=== PATIENT | male | born 1995 | race Caucasian/White ===

== ENCOUNTER 2019-12-29 13:27 | Emergency (ER) | payer OTHER, SELFPAY ==
--- NOTE | ~2019-12-29 | XR_ITS ---
. EXAMINATION: XR knee RT 3V DATE: 12/29/2019 13:56 INDICATION: Medial right knee pain and inability to straighten the knee post fall TECHNIQUE: Anteroposterior, oblique and crosstable lateral views of the right knee were obtained COMPARISON: None. FINDINGS: Alignment is normal. No fracture. No joint effusion/layering lipohemarthrosis. Borderline joint spac e narrowing in the medial compartment. Soft tissues are unremarkable. IMPRESSION: 1. Borderline joint space narrowing in the medial compartment. No right knee joint effusion or osseou s abnormality. Reviewed, dictated and finalized at location A. IMPRESSION: 1. Borderline joint space narrowing in the medial compartment. No right knee bridger int effusion or osseous abnormality.
--- NOTE | 2019-12-29 13:30 | ED.GENADULT ---
HPI - General Adult General Stated complaint: right knee pain Time Seen by Provider: 12/29/19 13:29 Related Data Allergies Allergy/AdvReac Type Severity Reaction Status Date / Time No Known Allergies Allergy Unverified 03/27/11 12:13
[2019-12-29 13:35] VITALS: BP 161/99; PULSE 88; RESP 16; TEMP 36.9; O2SAT 97
--- NOTE | 2019-12-29 13:39 | ED.ABDPAIN ---
HPI - Abdominal Pain General Chief Complaint: Extremity Injury, Lower <DOT Dewitt Last Filed: 12/29/19 14:14> Stated Complaint: right knee pain <DOT Dewitt Last Filed: 12/29/19 14:14> Time Seen by Provider: 12/29/19 13:29 <DOT Dewitt Last Filed: 12/29/19 14:14> Source: patient <DOT Dewitt Last Filed: 12/29/19 14:14> Mode of arrival: ambulatory <DOT Dewitt Last Filed: 12/29/19 14:14> Limitations: no limitations <DOT Dewitt Last Filed: 12/29/19 14:14> History of Present Illness HPI narrative: Patient is a 24-year-old male who presents with several days duration of right medial knee pain with aching pain worse with weightbearing and activity patient was wrestling with his brother at the time of the injury. Patient is taken pain pills with some improvement patient on arrival per private vehicle in no distress resting comfortably. Patient denies similar occurrence in the past. Patient is not been seen for this complaint. Patient denies radicular symptoms or paresthesias numbness or tingling. Patient notes slight swelling of the joint <DOT Dewitt Last Filed: 12/29/19 14:14> Related Data Allergies/Adverse Reactions: Allergies Allergy/AdvReac Type Severity Reaction Status Date / Time No Known Allergies Allergy Verified 12/29/19 13:45 <DOT Dewitt Last Filed: 12/29/19 14:14> Review of Systems Review of Systems: Narrative: CONSTITUTIONAL: Denies fever, chills, or sweats. EYES: Denies redness, or discharge. ENT: Denies rhinorrhea, congestion, sore throat, or otalgia. RESPIRATORY: Denies cough or dyspnea. SKIN: Denies rash or itching. MUSCULOSKELETAL: Positive for right knee pain and joint swelling NEUROLOGIC: Denies headache, numbness, or weakness. <DOT Dewitt Last Filed: 12/29/19 14:14> [facility] Social History Social History: Social History (Updated 12/29/19 @ 13:43 by Yury Gupta PA-C) Smoking status: Never smoker <Yury Gupta PA-C - Last Filed: 12/29/19 14:14> Exam Narrative: Exam Narrative: GENERAL: Well-appearing, well-nourished, and in no acute distress. HEAD: Normocephalic, atraumatic. EYES: PERRLA and EOMI. ENT: Nares clear, no rhinorrhea or epistaxis. Mucous membranes moist. EXTREMITIES: Tenderness of the medial aspect of the right knee no deformity noted SKIN: Warm, dry, no rash. NEURO: No focal deficits. Alert and oriented x3. Neurovascularly intact. Capillary refill less than 2-second PSYCH: Normal mood and affect. <Yury Gupta PA-C - Last Filed: 12/29/19 14:14> Course Course Emergency Course: Patient aware of case findings treatment plan and diagnosis agreeing to follow-up as directed <Yury Gupta PA-C - Last Filed: 12/29/19 14:14> Vital Signs Vital signs: Vital Signs Temperature 36.9 C 12/29/19 13:35 Pulse Rate 88 12/29/19 13:35 Respiratory Rate 16 12/29/19 13:35 Blood Pressure 161/99 H 12/29/19 13:35 Pulse Oximetry 97 12/29/19 13:35 Temperature 36.9 C 12/29/19 13:35 Pulse Rate 59 L 12/29/19 14:31 Respiratory Rate 16 12/29/19 14:31 Blood Pressure 138/75 12/29/19 14:31 Pulse Oximetry 97 12/29/19 14:31 <Yury Gupta PA-C - Last Filed: 12/29/19 14:14> Vital Signs Temperature 36.9 C 12/29/19 13:35 Pulse Rate 88 12/29/19 13:35 Respiratory Rate 16 12/29/19 13:35 Blood Pressure 161/99 H 12/29/19 13:35 Pulse Oximetry 97 12/29/19 13:35 Temperature 36.9 C 12/29/19 13:35 Pulse Rate 59 L 12/29/19 14:31 Respiratory Rate 16 12/29/19 14:31 Blood Pressure 138/75 12/29/19 14:31 Pulse Oximetry 97 12/29/19 14:31 <Petra Stacy MD - Last Filed: 12/29/19 18:11> MDM - Abdominal Pain MDM Narrative Medical decision making narrative: Patients injury or pain is consistent with musculoskeletal etiology. No s
[2019-12-29] MEDS: KETOROLAC (*BKC) 60 MG/2 ML VIAL IM (13:53)
[2019-12-29 14:31] VITALS: BP 138/75; PULSE 59; RESP 16; O2SAT 97
== END 2019-12-29 14:32 | disposition home or self-care (01) ==
PROVIDERS: Emergency Provider Emergency Medicine
DX: M25.561 Pain in right knee (principal)
CPT/HCPCS: 73562; 96372; 99283; J1885

== ENCOUNTER 2020-01-21 18:29 | Outpatient (CLI) | payer OTHER, SELFPAY ==
--- NOTE | ~2020-01-21 | MR_ITS ---
EXAMINATION: MR knee RT wo con DATE: 01/21/2020 19:09 INDICATION: Right knee pain. TECHNIQUE: Magnetic resonance imaging (MRI) of the right knee was performed without intravenous contr ast. Sequences included axial PD-weighted FS FSE, coronal PD-weighted FSE and PD-weighted FS FSE, sag ittal PD-weighted FSE, and sagittal T2-weighted FS FSE. COMPARISON: Right knee radiographs 01/06/2020 FINDINGS: Medial compartment: Medial meniscus is normal. Medial compartment cartilage is normal. Lateral compartment: Lateral meniscus is normal. Lateral compartment cartilage is normal. Patellofemoral compartment: Patellar cartilage is normal. Trochlear cartilage is normal. Ligaments and tendons: The anterior and posterior cruciate ligaments are normal. There is a partial tear of medial collatera l ligament with surrounding edema. Lateral collateral ligament complex is normal. The extensor mechan ism is normal. Fluid: There is a small knee joint effusion. Osseous/other: There is bone marrow edema of the posterior aspects of lateral tibial condyle and lateral femoral con dyle, consistent with contusions. IMPRESSION: 1. Grade 2 sprain of medial collateral ligament. 2. Small knee joint effusion. Reviewed, dictated and finalized at location A.
== END 2020-01-21 18:30 | disposition home or self-care (01) ==
PROVIDERS: PCP Physician Assistant; Visit Provider Orthopaedic Surgery
DX: M25.461 Effusion, right knee (principal); S83.411A Sprain of medial collateral ligament of right knee, initial encounter; X58.XXXA Exposure to other specified factors, initial encounter
CPT/HCPCS: 73721

== ENCOUNTER 2021-01-23 17:31 | Emergency (ER) | payer OTHER, SELFPAY ==
[2021-01-23 17:40] VITALS: BP 145/84; PULSE 82; RESP 16; TEMP 37.1; O2SAT 98
[2021-01-23 17:56] VITALS: BP 145/84; PULSE 82; RESP 16; TEMP 37.1; O2SAT 98
--- NOTE | 2021-01-23 17:58 | ED.GENADULT ---
HPI - General Adult General Chief complaint: Wound/Laceration Stated complaint: Possible infection at injection site Time Seen by Provider: 01/23/21 17:59 Source: patient and RN notes reviewed Mode of arrival: ambulatory Limitations: no limitations History of Present Illness HPI narrative: 25-year-old male presents with injection site swelling and pain to the right hip for 1 day. ?Jay reports injecting Testosterone into right buttock on Saturday01/21/2021 as he has done for the past 10 weeks and noticed a lump and pain on Saturday01/22/2021. ?Jay believes injection caused swelling and pain, concerned for infection. ?No treatment. ?Denies erythema or drainage. ?No streaking. ?Denies fever. ?Denies nausea, vomiting, and abdominal pain. ?Tolerating po intake well. ?Remains active. ?The patient reports he has not been diagnosed with COVID-19. ?The patient reports he is not waiting for the results of a COVID-19 lab test. ?The patient reports he does not have chills, weakness, or fatigue. ?The patient reports he does not have a new or worsening cough or shortness of breath. ?Denies chest pain. ?The patient reports he does not have any rhinorrhea, congestion, loss of taste or smell, sore throat, and diarrhea. ?Denies recent traveling. ?Denies concerns for COVID-19 or exposures. ?At this time, the patient is not suspected of having COVID-19. Some parts of this dictation were generated by voice recognition software and may contain typographical and/or grammatical inaccuracies. Related Data Home Medications Medication Instructions Recorded Confirmed No Home Medications 01/23/21 01/23/21 Allergies Allergy/AdvReac Type Severity Reaction Status Date / Time No Known Allergies Allergy Verified 01/23/21 17:38 Review of Systems Review of Systems: Narrative: CONSTITUTIONAL: Denies fever, chills, sweats. EYES: Denies visual changes, redness, discharge. ENT: Denies rhinorrhea, congestion, sore throat, otalgia. CARDIOVASCULAR: Denies chest pain, palpitations, edema. RESPIRATORY: Denies dyspnea, wheezing, cough. GASTROINTESTINAL: Denies abdominal pain, nausea, vomiting, diarrhea. SKIN: Complaints of injection site swelling and pain to right buttock. Denies erythema or drainage. MUSCULOSKELETAL: Denies acute back pain, joint pain, or myalgia. NEUROLOGIC: Denies numbness or focal weakness. PSYCHIATRIC: Denies anxiety or depression. All other systems reviewed are negative, except as documented in HPI and below. [facility] Past Medical History Medical History Acute medial meniscus tear of right knee BMI 35.0-35.9,adult Encounter to establish care Medial collateral ligament sprain of knee Right knee injury (12/26/19) Right knee pain Family History Family History Mother Eric's disease Father COPD (chronic obstructive pulmonary disease) Tclxt-Owvxucozs-Btiia (WPW) syndrome Hypertension Grandparent Heart disease Social History Social History Smoking status: Current some day smoker Tobacco type: smokeless tobacco Smokeless tobacco user: chewing tobacco Alcohol intake: current Drinks per week: 3 Substance use: never Spiritual care concerns: No Comments At time of signature, agree with the nurse past medical, surgical, social, and family history. There is no relevant family history pertinent to the presenting complaint. Exam Narrative: Exam Narrative: GENERAL: This is a well-nourished, well-developed patient, in no apparent distress. Talks in full sentences and ambulates with steady gait without dyspnea. HEAD: normocephalic, atraumatic. EYES: PERRL. Sclera clear/white. Vision is grossly intact. CARDIOVASCULAR: Regular rate and rhythm without murmurs, gallops, or rubs. RESPIRATORY: Clear to auscultation. Breath sounds equal bilaterally. No wh
== END 2021-01-23 18:20 | disposition home or self-care (01) ==
PROVIDERS: Emergency Provider Nurse Practitioner Family
DX: T80.89XA Other complications following infusion, transfusion and therapeutic injection, initial encounter (principal); S30.0XXA Contusion of lower back and pelvis, initial encounter; X58.XXXA Exposure to other specified factors, initial encounter; F17.220 Nicotine dependence, chewing tobacco, uncomplicated
CPT/HCPCS: 99211; G0463

== ENCOUNTER 2024-09-11 08:41 | Emergency (ER) | payer SELFPAY ==
[2024-09-11 08:50] VITALS: BP 136/83; PULSE 81; RESP 16; TEMP 36.8; O2SAT 99
--- OUTSIDE RECORDS SUMMARY | 2024-09-11 08:52 | XMS_ITS | Clinical Summary ---
Author Organization [facility] Address [address] [place] [address]. [place], [place] [id number] [place] [address] Care Team Providers Care Gynecological Assistant Name Role Phone Unavailable Primary Care Provider Unavailabl e Social History Tobacco Use Types Packs/Day Years Used Date Smoking Tobacco: Never Assessed Sex and Gender Information Value Date Recorded Sex Assigned at Not on file Legal Sex Male 8:22 PM CDT Gender Identity Not on file Sexual Orientation Not on file Plan of Treatment Health Maintenance Due Date Last Done Comments Annual Physical 1998 Hepatitis C 2013 DTaP, Tdap and Td Vaccines ( 1 - Tdap) 2014 Hepatitis B Vaccines (1 of 3 - 19+ 3-dose series) 2014 COVID-19 Vaccine (2023-2 5 season) 2024 Influenza Adult (#1) 2024 HPV Vaccines Aged Out No longer eligi ble based on patient's age to complete this topic Meningococcal B Vaccine Aged Out No l onger eligible based on patient's age to complete this topic Meningococcal Vaccine Aged Out No david ayanna eligible based on patient's age to complete this topic Pneumococcal Vaccine: Pediat rics (0 to 5 Years) and At-Risk Patients (6 to 64 Years) Aged Out No longer eligible b ased on patient's age to complete this topic RSV Immunizations Under 20 Months Aged Out No longer eligible based on patient's age to complete this topic
--- OUTSIDE RECORDS SUMMARY | 2024-09-11 08:52 | XMS_ITS | Encounter Summary ---
Author Organization [facility] Healthcare Address [address] [place] [address] Care Team Providers Care Mangle Press Catcher Name Role Phone No, Physician Primary Care Provider [phone] Reason for Visit * Diagnostic Imaging (Routine) - Pending Review Specialty Diagnoses / Procedures Referred By Dominique cerrato Referred To Contact Diagnoses Left shoulder pain, unspecified chronicity Procedures XR Shoulder Left 2 or More Views Kimberly Cooper PA [address] [place] [address] Phone: tel: fax: Referral ID Status Reason Start Date Expiration Date V isits Requested Visits Authorized [id number] Pending Review 09/11/2024 10/11/2025 1 1 Encounter Details Date Type Department Care Team (Late st Contact Info) Description 09/11/2024 7:43 AM SKIN CARE CONSULTANT Hospital Encounter [facility] Medical Group Orthopedics and Sports Medicine [address] [place] [address] [address], [place] [id number] Arrived Social History Tobacco Use Types Packs/Day Years Used Date Smoking Tobacco: Never Assessed Sex and Gender Information Value Date Recorded Sex Assigned at Not on file Legal Sex Male 1:08 PM SKIN CARE CONSULTANT Gender Identity Not on file Sexual Orientation Not on file documented as of this encounter Plan of Treatment Pending Results Name Type Priority Associated Diagnoses Date /Time XR Shoulder Left 2 or More Views Imaging Routine Left shoulder pain, unspecified chronicity 09/11/2024 7:43 AM SKIN CARE CONSULTANT documented as of this encounter Visit Diagnoses Not on filedocumented in this encounter Care Teams Mangle Press Catcher Relationship Specialty Start Date End Date No, Physician PCP - General 10/02/18 documented as of this encounter
--- OUTSIDE RECORDS SUMMARY | 2024-09-11 08:52 | XMS_ITS | Clinical Summary ---
Author Organization [facility] Address [address] [place] [address] Phone Care Team Providers Care Engineer Design And Construction Name Role Phone Provider, None Primary Care Provider Unavailabl e Allergies No known active allergies Medications traMADol (ULTRAM) 50 MG TabletIndicatio ns:Cellulitis of left knee Take 1 Tablet by mouth every 6 hours as needed for Moderate or more severe pain. 15 Tablet 06/06/2022 Active naproxen (NAPROSYN) 500 MG Tablet Take 1 Tablet by mouth 2 times daily as needed for Mild or more severe pain. 20 Tablet 07/24/2024 Active Encounters Date Type Department Care Team Description 07/24/2024 9:03 AM RN PEDIATRIC ICU - 07/24/2024 10:21 AM RN PEDIATRIC ICU Emergency [facility] Emergency [address] [place] [address] Rosalba Ro, BLASTING HELPER, CURB MACHINE OPERATOR Sprain of left shoulder, unspecified shoulder sprain type, initial encounter Discharge Disposition: Discharged to home or Selfcare 07/24/2024 Travel from Last 3 Months Social History Tobacco Use Types Packs/Day Years Used Date Smoking Tobacco: Never Smokeless Tobacco: Current Chew Tobacco Cessation:Ready to Q uit: Not Asked; Counseling Given: Not Answered Alcohol Use Standard Drinks/Week Comments Yes 0 (1 standard drink = 0.6 oz pur e alcohol) socially Sex and Gender Information Value Date Recorded Sex Assigned at Not on file Legal Sex Male 12:20 AM CDT Gender Identity Not on file Sexual Orientation Not on file Last Filed Vital Signs Vital Sign Reading Time Taken Comments Blood Pressure 140/72 07/24/2024 10:20 AM RN PEDIATRIC ICU Pulse 72 07/24/2024 10:20 AM RN PEDIATRIC ICU Temperature 36.7 ??C (98.1 ??F) 07/24/2024 9:06 AM CS T Respiratory Rate 16 07/24/2024 10:20 AM RN PEDIATRIC ICU Oxygen Saturation 100% 07/24/2024 10:20 AM RN PEDIATRIC ICU Inhaled Oxygen Concentration - - Weight 113.4 kg (250 lb) 07/24/2024 9:06 AM RN PEDIATRIC ICU Height 182.9 cm (6') 07/24/2024 9:06 AM RN PEDIATRIC ICU Body Mass Index 33.91 07/24/2024 9:06 AM RN PEDIATRIC ICU Plan of Treatment Health Maintenance Due Date Last Done Comments Hepatitis C Virus (HCV) Screening 1995 Influenza Immunization (#1) 2024 SARS-COV-2 Immunization ( season) 2024 Respiratory Syncytial Virus (RSV) Immunization (Adult) (1 - 1-dose 75+ series) 2070 Hepatitis B Immunization Completed 997, 1995, 1995 Meningococcal Immunization (ACWY) Aged Out 03/26/2008, 03/06/2007 No longer eligibl e based on patient's age to complete this topic DTaP/Tdap/Td Immunization Discontinued 2018, 04/04/2006, 12/12/2000, Additional history exists TdaP Immunization Completed 10/02/2018, 04/04/2006 Pneumococcal Immunization Combined Aged Out No longer eligible based on patient's age to complete this topic Rotavirus Immunization Aged Out No lo nger eligible based on patient's age to complete this topic Procedures Procedure Name Priority Date/Time Associated Diagnosis Comments SPLINT APPLICATION Routine 07/24/2024 9: 58 AM RN PEDIATRIC ICU XR SHOULDER COMPLETE LEFT STAT 07/24/2024 9:34 AM RN PEDIATRIC ICU from Last 3 Months Results * Splint Application (07/24/2024 9:58 AM RN PEDIATRIC ICU) Narrative Batsheva Sanford MD - 07/24/2024 9:58 AM RN PEDIATRIC ICU Rosalba Ro APRN, CURB MACHINE OPERATOR ? 07/24/2024 10:07 AM Splint Application Performed by: Rosalba Ro APRN, CURB MACHINE OPERATOR Authorized by: Rosalba Ro APRN, CNP ?? Consent: ??Consent obtained: ??Verbal ??Consent given by: ??Patient ??Risks, benefits, and alternatives were discussed: yes ?Risks discussed: ??Discoloration, numbness, pain and swelling ??Alternatives discussed: ??No treatment, delayed treatment and referral [place] protocol: ??Procedure explained and questions answered to patient or proxy's satisfaction: yes ?Imaging studies available: yes ?Patient identity confirmed: ??Verbally with patient and arm band Pre-procedure details: ??Distal neurologic exam: ??Normal ??Distal perfusion: distal pulses strong and brisk capillary refill ?? Procedure details: ??Location: ??Shoulder ??Shoulder location: ??L shoulder ??Supplies: ??Sling Post-procedure details: ??Distal neurologic exam: ??Normal ??Distal perfusion: distal pulses strong and brisk capillary refill ?Procedure completion: ??Tolerated well, no immediate complications us Rosalba Ro APRN, CNP PROCEDURE/MINOR SURGI MOISES ORDERABLES Final Result * XR SHOULDER COMPLETE LEFT (07/24/2024 9:34 AM RN PEDIATRIC ICU) Anatomical Region Laterality Modality UPPER EXTREMITY, shoulder Left Digita l Radiography 07/24/2024 9:50 AM RN PEDIATRIC ICU Impressions 07/24/2024 9:52 AM RN PEDIATRIC ICU IMPRESSION: Normal left shoulder evaluation. ??If persistent clinical concern for internal derangement, may consider further evaluation with MRI. Narrative 07/24/2024 9:52 AM RN PEDIATRIC ICU EXAM DESCRIPTION: XR SHOULDER COMPLETE LEFT REASON FOR STUDY: left shoulder injury- [facility]. He states there is a pop and he twists to put it back in place. ? FINDINGS: Four views submitted without comparison. No acute fracture is identified. ??Alignment is normal. ??The joint spaces are normal. THIS IS AN ELECTRONICALLY VERIFIED FINAL REPORT 07/24/2024 9:50 AM - Electronically signed by ??Moreno Yip M.D. MF: DELIA D: ??07/24/2024 9:50 AM T: ??07/24/2024 9:50 AM Report ID: [id number] Reading Location: ??[id number] Procedure Note Moreno Yip MD - 07/24/2024 EXAM DESCRIPTION: XR SHOULDER COMPLETE LEFT REASON FOR STUDY: left shoulder injury- Pt injured left shoulder at [employer] 1 week ago. He states there is a pop and he twists to put it back in place. FINDINGS: Four views submitted without comparison. No acute fracture is identified. Alignment is normal. The joint spaces are normal. THIS IS AN ELECTRONICALLY VERIFIED FINAL REPORT 07/24/2024 9:50 AM - Electronically signed by Moreno Yip M.D. MF: DELIA Report ID: [id number] Reading Location: [id number] IMPRESSION: Normal left shoulder evaluation. If persistent clinical concern for internal derangement, may consider further evaluation with MRI. Rosalba Ro BLASTING HELPER, CURB MACHINE OPERATOR IMG DIAGNOSTIC ORDERA BLES Final Result from Last 3 Months Care Teams Engineer Design And Construction Relationship Specialty Start Date End Date Provider, None [place] PCP - General 06/06/22
--- OUTSIDE RECORDS SUMMARY | 2024-09-11 08:52 | XMS_ITS | Clinical Summary ---
Author Organization [facility] Address [address] [place] [address] Care Team Providers Care Switchboard And Control Room Operator Name Role Phone No, Physician Primary Care Provider [phone] Allergies No known active allergies Encounters Date Type Department Care Team Description 09/11/2024 7:43 AM FLOOD CONTROL ENGINEER Hospital Encounter [facility] Medical [facility] and Sports Medicine [address] [facility] [address] [place] [phone] Arrived 08/24/2024 Telephone [facility] Orthopedics and Sports Medicine [address] [place] [address] [address] [place] [phone] Diego Hickman MD from Last 3 Months Immunizations Name Administration Dates Next Due Tdap 06/04/2022(Deferred: Other - Pt reports having tdap shot given 4 years ago.),10/02/2018 Social History Tobacco Use Types Packs/Day Years Used Date Smoking Tobacco: Never Assessed Sex and Gender Information Value Date Recorded Sex Assigned at Not on file Legal Sex Male 1:08 PM FLOOD CONTROL ENGINEER Gender Identity Not on file Sexual Orientation Not on file Obstetrics History Last Filed Vital Signs Vital Sign Reading Time Taken Comments Blood Pressure 142/94 06/04/2022 8:31 PM CDT Pulse 85 06/04/2022 8:31 PM CDT Temperature 36.7 ??C (98 ??F) 06/04/2022 8:31 PM CDT Respiratory Rate 18 06/04/2022 8:31 PM CDT Oxygen Saturation 100% 06/04/2022 8:31 PM CDT Inhaled Oxygen Concentration - - Weight 111.1 kg (245 lb) 06/04/2022 12:15 PM CDT Height 182.9 cm (6') 06/04/2022 12:15 PM CDT Body Mass Index 33.23 06/04/2022 12:15 PM CDT Plan of Treatment Health Maintenance Due Date Last Done Comments Depression Screening 1995 Hepatitis C Screening 1995 Regular Well Visit/Exam 18-64 2013 Influenza Vaccine (#1) 2024 DTaP/Tdap/Td Vaccine (8 - Td or Tdap) 10/02/2028 10/02/2018, 04/04/2006, 12/12/2000, Additional history exists Varicella Vaccines Completed 12/02/2007, 09/24/1996 HPV Vaccines Completed 12/29/2013, 08/13, 03/10/2013 Pneumococcal vaccine <65 Aged Out No longer eligible based on patient's age to complete this topic Care Teams Switchboard And Control Room Operator Relationship Specialty Start Date End Date No, Physician PCP - General 10/02/18
--- OUTSIDE RECORDS SUMMARY | 2024-09-11 08:52 | XMS_ITS | Referral Summary ---
Author Organization [facility] Address [address] [place] [address] Care Team Providers Care Welfare Eligibility Worker Name Role Phone No, Physician Primary Care Provider [phone] Encounters Date Type Department Care Team Description 09/11/2024 7:43 AM POLICE DISTRICT SWITCHBOARD OPERATOR Hospital Encounter [facility] Medical Group Orthopedics and Sports Medicine [address] [facility] [address] [place] [phone] Arrived 08/24/2024 Telephone [facility] Orthopedics and Sports Medicine [address] [place] [address] [address], [place] [phone] Diego Hickman MD from Last 3 Months Allergies No known active allergies Immunizations Name Administration Dates Next Due Tdap 06/04/2022(Deferred: Other - Pt reports having tdap shot given 4 years ago.),10/02/2018 Social History Tobacco Use Types Packs/Day Years Used Date Smoking Tobacco: Never Assessed Sex and Gender Information Value Date Recorded Sex Assigned at Not on file Legal Sex Male 1:08 PM POLICE DISTRICT SWITCHBOARD OPERATOR Gender Identity Not on file Sexual Orientation [...] 06/04/2022 12:15 PM CDT Plan of Treatment Not on file Care Teams Welfare Eligibility Worker Relationship Specialty Start Date End Date No, Physician PCP - General 10/02/18
--- OUTSIDE RECORDS SUMMARY | 2024-09-11 08:52 | XMS_ITS | Continuity of Care Document ---
Author Organization [facility] Address [address] [place] [address] Phone Care Team Providers Care Physical Education Professor Name Role Phone Gabriela Canales Unavailable Unavailable Procedures Procedure Date Injection shoulder arthgrphy/CT/MRI Advance Directives Directive Yes / No Effective Date File Name No Information Encounters Encounter Description Practice Location Reason(s) For Visit Diagnoses Date Provider Providers Copied on Encounter [facility], [address] [facility] [address] [place] [address], [id number], tel:[phone] [facility] No Information Kong Ochoa. 1050 [facility], [facility] 100, [place], [place], [id number] , . tel:[phone] Family History Family Member Type Diagnosis Age At Onset No Information Payers Payer name Insurance type Covered constitution party ID Authoriza tion(s) No Information Social History Type Description Quantity Date Captured Comments Sex Male Smoking Status No Information Chief Complaint And Reason For Visit No Information Reason For Referral Reason For Referral No Information History Of Present Illness Encounter Date Complaint History Of Prese nt Illness No Information Functional Status Date Functional Assessmen t No Information Instructions Date Instruction Additional Infor mation No Information Assessments Type Assessment Date No Information Patient Care Teams Name Effective Dates (start - stop) Status Members No Information
--- OUTSIDE RECORDS SUMMARY | 2024-09-11 08:52 | XMS_ITS | Continuity of Care Document ---
Author Organization [facility] Address [address] [place] [address] [place] [address] Phone Care Team Providers Care Pencil Sorter Name Role Phone Luis ELeonel victor Unavailable Unavailable Procedures Procedure Date Eye Exam, New Patient Advance Directives Directive Yes / No Effective Date File Name No Information Encounters Encounter Description Practice Location Reason(s) For Visit Diagnoses Date Provider Providers Copied on Encounter [facility], [address] [place] [address] [address], [place], [place], [id number], [place] tel:[phone] [facility] No Information 9-200 8 Luis Evalente Leonel. [address] [facility] 102, [place], [address], [place]. tel:[phone] Family History Family Member Type Diagnosis Age At Onset No Information Payers Payer name Insurance type Covered democrat ID Authoriza tion(s) Medicaid [facility] [id number] Social History Type Description Quantity Date Captured [...]
--- OUTSIDE RECORDS SUMMARY | 2024-09-11 08:56 | XMS_ITS | Continuity of Care Document ---
Author Organization [facility] Address [address] [place] [address] [place] [address] Phone Care Team Providers Care Certified Massage Therapist Name Role Phone Luis ELeonel victor Unavailable Unavailable Procedures Procedure Date Eye Exam, New Patient Advance Directives Directive Yes / No Effective Date File Name No Information Encounters Encounter Description Practice Location Reason(s) For Visit Diagnoses Date Provider Providers [facility], [address] [place] [address] [address], [place], [place], [id number], [place] tel:[phone] [facility] No Information 9-200 8 Luis Evalente Leonel. [address] [facility] 102, [place], [address], [place]. tel:[phone] Family History Family Member Type Diagnosis Age At Onset No Information Payers Payer name Insurance type Covered green party ID Authoriza tion(s) Medicaid [facility] [id number] Social History Type Description Quantity Date Captured [...]
--- OUTSIDE RECORDS SUMMARY | 2024-09-11 08:57 | XMS_ITS | Continuity of Care Document ---
Author Organization [facility] Address [address] [place] [address] Phone Care Team Providers Care Slitter Cut Off Operator Name Role Phone Gabriela Canales Unavailable Unavailable Procedures Procedure Date Injection shoulder arthgrphy/CT/MRI Advance Directives Directive Yes / No Effective Date File Name No Information Encounters Encounter Description Practice Location Reason(s) For Visit Diagnoses Date Provider Providers Copied on Encounter [facility], [address] [facility] [address] [place] [address], [id number], tel:[phone] [facility] No Information Kong Ochoa. 1050 [facility], [facility], [place], [place], [id number] , . tel:[phone] Family History Family Member Type Diagnosis Age At Onset No Information Payers Payer name Insurance type Covered alliance party ID Authoriza tion(s) No Information Social [...]
[2024-09-11 09:48] LABS: EDSTREPNEGPOS1 Negative (Negative)
--- NOTE | 2024-09-11 10:03 | ED_ITS ---
HPI - URI/Sore Throat General Chief Complaint: Upper Respiratory Infection Stated Complaint: throat History of Present Illness HPI Narrative: patient is a 29-year-old male, past medical history significant for acid reflux, presents to [facility] with complaints of sore throat symptoms however he does not have pharyngeal discomfort but rather reports that he had some discomfort 2 days ago after he was eating and food became hung up just inferior to the suprasternal notch. He states he had to drink several times to get the food to pass down. He was experiencing severe acid reflux the day prior. He does not take medication for acid reflux relief. He states since that time he has had some discomfort with swallowing in the same location. He denies shortness of breath, he has no cough, has no URI symptoms otherwise. He denies hematochezia or melena. He states he was eating hamburger and a eggs at the time of the incident and does not believe he ingested anything sharp over to cause any trauma to his esophagus. He has not seen a robot technician or had an upper GI series completed the past. He denies any additional associated symptoms or modifying factors. Related Data Home Medications ?Medication ?Instructions ?Recorded ?Confirmed ?Last Taken ?Type doxycycline monohydrate 100 mg 100 mg PO BID 09/11/24 09/11/24 Unknown History capsule testosterone cypionate 200 mg/mL mg 09/11/24 Unknown History intramuscular oil Allergies Allergy/AdvReac Type Severity Reaction Status Date / Time No Known Allergies Allergy Verified 09/11/24 09:34 Review of Systems ENT: Reports as per HPI Gastrointestinal: Gastrointestinal: Reports as per HPI [facility] Past Medical History Medical History Medial collateral ligament sprain of knee Acute medial meniscus tear of right knee Right knee injury (12/26/19) Encounter to establish care BMI 35.0-35.9,adult Right knee pain Family History Family History Mother Eric's disease Father COPD (chronic obstructive pulmonary disease) Gxhis-Tnkihstfn-Gmdun (WPW) syndrome Hypertension Grandparent Heart disease Social History Social History Smoking status: Current some day smoker Tobacco type: smokeless tobacco Smokeless tobacco user: chewing tobacco Alcohol intake: current Drinks per week: 3 Substance use: never Living arrangements: alone Occupation/Education: unemployed Spiritual care concerns: No Exam Const: General: healthy appearing Nutritional Appearance: well nourished Orientation/consciousness: patient oriented x3 Limitations: no limitations HENMT: Head: normal to inspection Ears: external ears normal and TM's normal bilaterally Face/Nose/Sinus: Normal external nose present Face and sinus: normal facial exam and sinuses nontender Mouth: Yes Normal oral and palatal mucosa present, Yes lip normal and Yes moist mucous membranes Teeth and gingiva: dentition normal Throat: posterior oropharynx normal and uvula midline Eyes: Conjunctivae: conjunctivae normal Pupils: Equal, round and reactive pupils present EOM: EOMs intact bilaterally Direct Ophthalmoscopy: no photophobia Neck: Neck: normal visual inspection, no lymphadenopathy and no meningeal signs Resp: Effort & Inspection: normal respiratory effort Auscultation: clear to auscultation bilaterally Cardio: Rate: regular rate Rhythm: regular rhythm GI: GI Palp: Yes Soft to palpation Other: Abdomen is nontender to palpation, no subcutaneous emphysema noted to the chest wall, Skin: General skin exam: normal color Rashes: no rashes Neuro: General: patient oriented x3, moves all extremities, no meningeal signs, no focal motor deficits and CN's II-XI intact bilaterally Cranial nerves: Yes Nystagmus not present Psych: Other: patient does report that his symptoms have caused some anxiety, which may be contributing to his discomfort Course Course Emergency Course: suspect patient has acid reflux and a focal area of esophageal swelling where food was lodged briefly. He is eating and drinking well following, lower right concern for a retained food bolus. Will treat with a PPI, viscous lidocaine for acute symptom relief, follow-up with his PCP as he may require a gastroenterology referral should his symptoms persist. Patient is agreeable plan. His strep screen will reflux for culture Level of Care: Express Care Visit ([id number]) Vital Signs Vital signs: Vital Signs Temperature 36.8 C 09/11/24 08:50 Pulse Rate 81 09/11/24 08:50 Respiratory Rate 16 09/11/24 08:50 Blood Pressure 136/83 09/11/24 08:50 Pulse Oximetry 99 09/11/24 08:50 Oxygen Delivery Room Air 09/11/24 08:50 Temperature 36.8 C 09/11/24 08:50 Pulse Rate 81 09/11/24 08:50 Respiratory Rate 16 09/11/24 08:50 Blood Pressure 136/83 09/11/24 08:50 Pulse Oximetry 99 09/11/24 08:50 Oxygen Delivery Room Air 09/11/24 08:50 MDM - URI/Sore Throat Lab Data Labs: Lab Results 09/11/24 Range/Units 09:46 POC Grp A Strep Screen Negative (Negative) Discharge Plan Discharge Clinical Impression: GERD with esophagitis Qualifiers: Esophagitis bleeding: without hemorrhage Qualified Code(s): K21.00 - Gastro- esophageal reflux disease with esophagitis, without bleeding Patient Disposition: Home, Self-Care Condition: Stable Instructions: Antibiotic Form, GERD (Gastroesophageal Reflux Disease) (ED), Esophageal Spasm (ED) Additional Instructions: START DAILY ACID REFLUX MEDICATION, WE HAVE PRESCRIBED PROTONIX HOWEVER IF IT IS TOO EXPENSIVE USING A GOOD RX COUPON, YOU MAY USE NEXIUM OR PRILOSEC DIRECTED [id number], GENERIC IS ACCEPTABLE. TAKE PRESCRIBED. YOU MAY USE VISCOUS LIDOCAINE FOR ACUTE DISCOMFORT PRESCRIBED WELL. FOLLOW-UP CLOSELY WITH YOUR PRIMARY DOCTOR IF SYMPTOMS NOT RESOLVING YOU MAY REQUIRE A REFERRAL TO GASTROENTEROLOGY SHOULD SYMPTOMS PERSIST Patient Language: Korean Prescriptions: New pantoprazole [Protonix] 20 mg tablet,delayed release (DR/EC) 20 mg PO QAM Qty: 30 0RF lidocaine HCl [Lidocaine Viscous] 2 % solution 1 applic mucous membrane TID PRN (Reason: pain) Qty: 100 0RF No Action testosterone cypionate 200 mg/mL oil doxycycline monohydrate 100 mg capsule 100 mg PO BID Follow-up/Referrals: PHYSICIAN,CONSTRUCTION DIRECTOR [Primary Care Provider] - Time of Disposition: 10:11
== END 2024-09-11 10:20 | disposition home or self-care (01) ==
PROVIDERS: Emergency Provider Nurse Practitioner Family
DX: K21.00 Gastro-esophageal reflux disease with esophagitis, without bleeding (principal); F17.220 Nicotine dependence, chewing tobacco, uncomplicated
CPT/HCPCS: 87081; 87880; 99213; G0463

== ENCOUNTER 2024-11-29 09:08 | Emergency (ER) | payer SELFPAY ==
--- OUTSIDE RECORDS SUMMARY | 2024-11-29 09:10 | XMS_ITS | Continuity of Care Document ---
Author Organization [facility] Address [address] [place] [address] [place] [address] Phone Care Team Providers Care Commissioning Engineer Name Role Phone Luis ELeonel victor Unavailable Unavailable Procedures Procedure Date Eye Exam, New Patient Advance Directives Directive Yes / No Effective Date File Name No Information Encounters Encounter Description Practice Location Reason(s) For Visit Diagnoses Date Provider Providers Copied on Encounter [facility], [address] [place] [address] [address], [place], [place], [id number], [place] tel:[phone] SEC [facility] No Information 9-200 8 Lavelljoellevalente Leonel. 24[address] [facility] 102, [place], [address], [place]. tel:[phone] Family History Family Member Type Diagnosis Age At Onset No Information Payers Payer name Insurance type Covered libertarian ID Authoriza tion(s) Medicaid [facility] [id number] Social History Type Description Quantity Date Captured [...]
--- OUTSIDE RECORDS SUMMARY | 2024-11-29 09:10 | XMS_ITS | Continuity of Care Document ---
Author Organization [facility] Address [address] [place] [address] Phone Care Team Providers Care Machine Wood Sander Name Role Phone Gabriela Canales Unavailable Unavailable Procedures Procedure Date Injection shoulder arthgrphy/CT/MRI Advance Directives Directive Yes / No Effective Date File Name No Information Encounters Encounter Description Practice Location Reason(s) For Visit Diagnoses Date Provider Providers Copied on Encounter [facility], [address] [facility] [address] [place] [address], [id number], tel:[phone] [facility] No Information Kong Ochoa. 1050 [facility], [facility] 100, [place], [place], [id number] , . tel:[phone] Family History Family Member Type Diagnosis Age At Onset No Information Payers Payer name Insurance type Covered republican ID Authoriza tion(s) No Information Social History [...]
--- OUTSIDE RECORDS SUMMARY | 2024-11-29 09:10 | XMS_ITS | Clinical Summary ---
Author Organization [facility] Address [address] [place] [address] Care Team Providers Care Calculating Machine Mechanic Name Role Phone Unavailable Primary Care Provider [...] - 19+ 3-dose series) 2014 COVID-19 Vaccine ( - 2023-2 5 season) 2024 HPV Vaccines Aged Out No longer eligi ble based on patient's age to complete this topic Meningococcal B Vaccine Aged Out No l onger eligible based on patient's age to complete this topic Meningococcal Vaccine Aged Out No david ayanna eligible based on patient's age to complete this topic Pneumococcal Vaccine: Pediat rics (0 to 5 Years) and At-Risk Patients (6 to 49 Years) Aged Out No longer eligible b ased on patient's age to complete this topic RSV Immunizations Under 20 Months Aged Out No longer eligible based on patient's age to complete this topic
--- OUTSIDE RECORDS SUMMARY | 2024-11-29 09:10 | XMS_ITS | Referral Summary ---
Author Organization [facility] Address [address] [place] [address] Care Team Providers Care Wildlife Science Professor Name Role Phone No, Physician Primary Care Provider [phone] Encounters Date Type Department Care Team Description 09/11/2024 3:30 PM WATER METER READER Office Visit [facility] Orthopedics and Sports Medicine [address] [facility] [address] [place] [address] Kimberly Cooper PA Superior glenoid labrum lesion of left shoulder, initial encounter (Primary Dx) from Last 3 Months Allergies No known active allergies Medications No known medications Active Problems No known active problems Immunizations Immunization Administration Dates Next Due Tdap 06/04/2022(Deferred: Other - Pt reports having tdap shot given 4 years ago.),10/02/2018 Social History Tobacco Use Types Packs/Day Years Used Date Smoking Tobacco: Never Smokeless Tobacco: Current Chew Tobacco Cessation:Ready to Q uit: No; Counseling Given: Not Answered Sex and Gender Information Value Date Recorded Sex Assigned at Not on file Legal Sex Male 1:08 PM WATER METER READER Gender Identity Not on file Sexual Orientation Not on file Last Filed Vital Signs Vital Sign Reading Time Taken Comments Blood Pressure 145/84 09/11/2024 3:21 PM WATER METER READER Pulse 94 09/11/2024 3:21 PM WATER METER READER Temperature 36.7 C (98 F) 06/04/2022 8:31 PM CDT Respiratory Rate 18 06/04/2022 8:31 PM CDT Oxygen Saturation 100% 06/04/2022 8:31 PM CDT Inhaled Oxygen Concentration - - Weight 105.2 kg (232 lb) 09/11/2024 3:21 PM WATER METER READER Height 181.6 cm (5' 11.5 ) 09/11/2024 3:21 PM CS T Body Mass Index 31.91 09/11/2024 3:21 PM WATER METER READER Plan of Treatment Not on file Care Teams Wildlife Science Professor Relationship Specialty Start Date End Date No, Physician PCP - General 10/02/18
--- OUTSIDE RECORDS SUMMARY | 2024-11-29 09:10 | XMS_ITS | Clinical Summary ---
Author Organization [facility] Address [address] [place] [address] Phone Care Team Providers Care Graphics Edit Technician Name Role Phone Provider, None Primary Care [...] more severe pain. 20 Tablet 07/24/2024 Active Social History Tobacco Use Types Packs/Day Years [...] Comments Blood Pressure 140/72 07/24/2024 10:20 AM SPECIALIZED LANGUAGE INSTRUCTOR Pulse 72 07/24/2024 10:20 AM SPECIALIZED LANGUAGE INSTRUCTOR Temperature 36.7 C (98.1 F) 07/24/2024 9:06 AM SPECIALIZED LANGUAGE INSTRUCTOR Respiratory Rate 16 07/24/2024 10:20 AM SPECIALIZED LANGUAGE INSTRUCTOR Oxygen Saturation 100% 07/24/2024 10:20 AM SPECIALIZED LANGUAGE INSTRUCTOR Inhaled Oxygen Concentration - - Weight 113.4 kg (250 lb) 07/24/2024 9:06 AM SPECIALIZED LANGUAGE INSTRUCTOR Height 182.9 cm (6') 07/24/2024 9:06 AM SPECIALIZED LANGUAGE INSTRUCTOR Body Mass Index 33.91 07/24/2024 9:06 AM SPECIALIZED LANGUAGE INSTRUCTOR Plan of Treatment Health Maintenance Due Date Last Done Comments Hepatitis C Virus (HCV) Screening 1995 Influenza Immunization (#1) 2024 SARS-COV-2 Immunization (2023- season) 2024 Respiratory Syncytial Virus (RSV) Immunization [...] age to complete this topic Care Teams Graphics Edit Technician Relationship Specialty Start Date End Date Provider, None [place] PCP - General 06/06/22
--- OUTSIDE RECORDS SUMMARY | 2024-11-29 09:10 | XMS_ITS | Clinical Summary ---
Author Organization [facility] Address [address] [place] [address] Care Team Providers Care Rent And Housing Investigator Name Role Phone No, Physician Primary Care Provider [phone] Allergies No known active allergies Medications No known medications Active Problems No known active problems Encounters Date Type Department Care Team Description 09/11/2024 3:30 PM BOTTLING MACHINE OPERATOR Office Visit [facility] Orthopedics and Sports Medicine [address] [facility] [address] [place] [address] Kimberly Cooper PA Superior glenoid labrum lesion of left shoulder, initial encounter (Primary Dx) from Last 3 Months Immunizations Immunization Administration Dates Next Due Tdap 06/04/2022(Deferred: Other - Pt reports having tdap shot given 4 years ago.),10/02/2018 Social History Tobacco Use Types Packs/Day Years Used Date Smoking Tobacco: Never Smokeless Tobacco: Current Chew Tobacco Cessation:Ready to Q uit: No; Counseling Given: Not Answered Sex and Gender Information Value Date Recorded Sex Assigned at Not on file Legal Sex Male 1:08 PM BOTTLING MACHINE OPERATOR Gender Identity Not on file Sexual Orientation Not on file Obstetrics History Last Filed Vital Signs Vital Sign Reading Time Taken Comments Blood Pressure 145/84 09/11/2024 3:21 PM BOTTLING MACHINE OPERATOR Pulse 94 09/11/2024 3:21 PM BOTTLING MACHINE OPERATOR Temperature 36.7 C (98 F) 06/04/2022 8:31 PM CDT Respiratory Rate 18 06/04/2022 8:31 PM CDT Oxygen Saturation 100% 06/04/2022 8:31 PM CDT Inhaled Oxygen Concentration - - Weight 105.2 kg (232 lb) 09/11/2024 3:21 PM BOTTLING MACHINE OPERATOR Height 181.6 cm (5' 11.5 ) 09/11/2024 3:21 PM CS T Body Mass Index 31.91 09/11/2024 3:21 PM BOTTLING MACHINE OPERATOR Plan of Treatment Health Maintenance Due Date Last Done Comments Depression Screening 1995 Hepatitis C Screening 1995 Regular Well Visit/Exam 18-64 2013 Influenza Vaccine (#1) 2024 DTaP/Tdap/Td Vaccine (8 - Td or Tdap) 10/02/2028 10/02/2018, 04/04/2006, 12/12/2000, Additional history exists Hepatitis B Screening Completed 09/24/1996 , 1995, 1995 Varicella Vaccines Completed 12/02/2007, 09/24/1996 HPV Vaccines Completed 12/29/2013, 08/13, 03/10/2013 Pneumococcal vaccine <65 Aged Out No longer eligible based on patient's age to complete this topic Care Teams Rent And Housing Investigator Relationship Specialty Start Date End Date No, Physician PCP - General 10/02/18
[2024-11-29 09:13] VITALS: BP 137/80; PULSE 67; RESP 20; TEMP 36.6; O2SAT 100
--- OUTSIDE RECORDS SUMMARY | 2024-11-29 09:13 | XMS_ITS | Continuity of Care Document ---
Author Organization [facility] Address [address] [place] [address] [place] [address] Phone Care Team Providers Care Digital Campaign Manager Name Role Phone Luis ELeonel victor Unavailable Unavailable Procedures Procedure Date Eye Exam, New Patient Advance Directives Directive Yes / No Effective Date File Name No Information Encounters Encounter Description Practice Location Reason(s) For Visit Diagnoses Date Provider Providers Copied on Encounter [facility], [address] [place] [address] [address], [place], [place], [id number], [place] tel:[phone] SEC [facility] No Information 9-200 8 Lavelljoellevalente Leonel. [address] [facility] 102, [place], [address], [place]. tel:[phone] Family History Family Member Type Diagnosis Age At Onset No Information Payers Payer name Insurance type Covered republican ID Authoriza tion(s) Medicaid [facility] [id number] Social History Type Description Quantity Date Captured [...]
--- OUTSIDE RECORDS SUMMARY | 2024-11-29 09:13 | XMS_ITS | Continuity of Care Document ---
Author Organization [facility] Address [address] [place] [address] Phone Care Team Providers Care Supervisory Air Intercept Controller Name Role Phone Gabriela Canales Unavailable Unavailable Procedures Procedure Date Injection shoulder arthgrphy/CT/MRI Advance Directives Directive Yes / No Effective Date File Name No Information Encounters Encounter Description Practice Location Reason(s) For Visit Diagnoses Date Provider Providers [facility]ied on Encounter [facility], [address] [facility] [address] [place] [address], [id number], tel:[phone] [facility] No Information Kong Ochoa. [address] [facility], [place], [place], [id number] , . tel:[phone] Family History Family Member Type Diagnosis Age At Onset No Information Payers Payer name Insurance type Covered libertarian ID Authoriza tion(s) No Information Social History [...]
--- NOTE | 2024-11-29 09:22 | ED_ITS ---
HPI - Skin/Abscess/Foreign Bdy General Chief complaint: Skin/Abscess/Foreign Body Stated complaint: pain in left elbow Time Seen by Provider: 11/29/24 09:17 Source: patient and RN notes reviewed Mode of arrival: ambulatory Limitations: no limitations History of Present Illness HPI narrative: Patient presents today complaining of a reddened area to the left lateral elbow area since yesterday. States it started out as a small pimple in the area has improved after he tried to pop it. States the small amount of clear fluid resulting. He has tried no [id number] interventions prior to arrival. History of cellulitis. Related Data Allergies Allergy/AdvReac Type Severity Reaction Status Date / Time No Known Allergies Allergy Verified 11/29/24 09:15 Review of Systems Review of Systems: CONSTITUTIONAL: Denies body aches, fever, chills, or sweats. EYES: Denies visual changes, redness, or discharge. ENT: Denies rhinorrhea, congestion, sore throat, or otalgia. CARDIOVASCULAR: Denies chest pain, palpitations, or edema. RESPIRATORY: Denies cough or dyspnea. GASTROINTESTINAL: Denies abdominal pain, nausea, vomiting, or diarrhea. GENITOURINARY: Denies dysuria or hematuria. SKIN: Denies rash, itching. +red area to elbow MUSCULOSKELETAL: Denies back pain, joint pain, or myalgia. NEUROLOGIC: Denies headache, numbness, tingling, or weakness. PSYCH: Denies depression or anxiety. [facility] Past Medical History Medical History Medial collateral ligament sprain of knee Acute medial meniscus tear of right knee Right knee injury (12/26/19) Encounter to establish care BMI 35.0-35.9,adult Right knee pain Family History Family History Mother Eric's disease Father COPD (chronic obstructive pulmonary disease) Ibfwo-Kbdjzhbnj-Gglfo (WPW) syndrome Hypertension Grandparent Heart disease Social History Social History Smoking status: Current some day smoker Tobacco type: smokeless tobacco Smokeless tobacco user: chewing tobacco Alcohol intake: current Drinks per week: 3 Substance use: never Living arrangements: alone Occupation/Education: unemployed Spiritual care concerns: No Comments At time of signature, I have reviewed and agree with nursing past medical, surgical, social and family history unless otherwise noted. Please see nursing chart for further information. There is no relevant family history pertinent to the presenting complaint Exam Narrative: GENERAL: Well-appearing, well-nourished, and in no acute distress. HEAD: Normocephalic, atraumatic. EYES: EOMI. No redness or drainage. Conjunctivae normal. ENT: Mucous membranes pink and moist. NECK: Normal AROM. CHEST: No respiratory distress. EXTREMITIES: Left elbow: Very mildly erythematous area to the lateral elbow measuring approx 3x3cm without fluctuance or induration with tiny central scabbing. Does not seem to be tender to palpation. No drainage. SKIN: Warm, dry, no rash. Capillary refill normal. Normal skin turgor. NEURO: No focal deficits. Alert and oriented x3. Gait steady. PSYCH: Normal affect. No signs of depression or anxiety. Course Course Level of Care: Express Care Visit Vital Signs Vital signs: Vital Signs Temperature 97.9 F 11/29/24 09:13 Pulse Rate 67 11/29/24 09:13 Respiratory Rate 11/29/24 09:13 Blood Pressure 137/80 11/29/24 09:13 Pulse Oximetry 100 11/29/24 09:13 Oxygen Delivery Room Air 11/29/24 09:13 Temperature 97.9 F 11/29/24 09:13 Pulse Rate 67 11/29/24 09:13 Respiratory Rate 11/29/24 09:13 Blood Pressure 137/80 11/29/24 09:13 Pulse Oximetry 100 11/29/24 09:13 Oxygen Delivery Room Air 11/29/24 09:13 Reviewed MDM - Skin/Abscess/Foreign Bdy MDM Narrative Medical decision making narrative: Patient has a very mild cellulitis without abscess. Will treat with some topical bacitracin and he will monitor for worsening symptoms. Anticipatory guidance given. Differential Diagnosis Differential diagnosis: Likely abscess of skin or subcutaneous tissue, c ellulitis, insect bites and impetigo Critical Care Time Critical Care Time Critical Care Time: No Discharge Plan Discharge Clinical Impression: Cellulitis Qualifiers: Site of cellulitis: extremity Site of cellulitis of extremity: upper extremity Laterality: left Qualified Code(s): L03.114 - Cellulitis of left upper limb Patient Disposition: Home Condition: Stable Instructions: Cellulitis (ED) Additional Instructions: You have a very mild skin infection. Wash with soap and water daily. Use the mupirocin ointment 2-3 times daily. Keep covered if your going to be in contact with others. Monitor for worsening symptoms and follow-up if needed. Your blood pressure was elevated above 120/80 today at Urgent Care. This puts you above the threshold for follow up. Please schedule a followup visit with your personal physician as soon as possible, for further evaluation and treatment. Even blood pressure exceeding 120/80 may indicate pre-hypertension. Patient Language: German Prescriptions: New mupirocin 2 % ointment 1 applic topical BID 7 Days Qty: 22 0RF Follow-up/Referrals: PHYSICIAN,PRODUCTION SUPERVISOR TRAINEE [Primary Care Provider] - Time of Disposition: 09:23
== END 2024-11-29 09:27 | disposition home or self-care (01) ==
PROVIDERS: Emergency Provider Nurse Practitioner
DX: L03.114 Cellulitis of left upper limb (principal)
CPT/HCPCS: 99213; G0463